=== PATIENT | male | born 1980 | race Caucasian/White ===

== ENCOUNTER 2022-09-04 12:02 | Outpatient (CLI) | payer BC, SELFPAY ==
[2022-09-04 10:40] LABS: Alanine Aminotransferase* 74 U/L (4-50); Cholesterol* 158 mg/dL (90-199)
[2022-09-04 10:41] LABS: HDL Cholesterol* 38 mg/dL (>=40); LDL Cholesterol Calculated 86 mg/dL (<100); Triglycerides* 169 mg/dL (40-149)
[2022-09-09 09:10] LABS: Chloride* 103 mmol/L (96-114); Potassium* 4.2 mmol/L (3.6-5.1); Sodium* 140 mmol/L (135-149)
[2022-09-09 09:12] LABS: Creatinine* 0.7 mg/dL (0.5-1.5); Estimated Glomerular Filt Rate 118 ml/min
[2022-09-09 09:13] LABS: Blood Urea Nitrogen* 10 mg/dL (5-24); Calcium* 8.2 mg/dL (8.4-10.6); Carbon Dioxide* 26 mmol/L (20-32); Glucose* 96 mg/dL (60-115)
== END 2022-09-04 12:03 | disposition home or self-care (01) ==
PROVIDERS: PCP Family Medicine; Visit Provider Family Medicine
DX: Z00.00 Encounter for general adult medical examination without abnormal findings (principal); E78.00 Pure hypercholesterolemia, unspecified; I10 Essential (primary) hypertension
CPT/HCPCS: 80048; 80061; 84460

== ENCOUNTER 2022-11-07 14:55 | Emergency (ER) | payer BC, SELFPAY ==
[2022-11-07 15:25] VITALS: BP 151/85; PULSE 78; RESP 16; TEMP 36.1; O2SAT 96; BMI 36.5
--- NOTE | 2022-11-07 15:41 | ED.GENADULT ---
HPI - General Adult General Time Seen by Provider: 15:41 Date Seen: 11/07/22 Chief complaint: Lower Extremity Swelling Stated complaint: Left ankle injury Time Seen by Provider: 11/07/22 15:22 Source: patient and RN notes reviewed Mode of arrival: ambulatory Limitations: no limitations History of Present Illness HPI narrative: Patient is a 42-year-old male coming in with left ankle pain and swelling and inability to bear weight on it. Slipped yesterday injuring the ankle. He has been trying to use crutches from someone else but they are too short. He cannot bear weight without severe pain. There is no numbness tingling in this foot. He has tried some Tylenol ibuprofen, ice, elevation. It is significantly swollen today, felt that he should probably have x-rays. Nothing else was injured in the fall, did not hit his head, nothing else is hurting at this time. Related Data Previous Rx's Medication Instructions Recorded rosuvastatin 10 mg tablet 10 mg PO .hs #90 tabs 09/08/22 triamterene 37.5 1 tab PO DAILY #90 tabs 09/09/22 mg-hydrochlorothiazide 25 mg tablet triamcinolone acetonide 0.1 % 1 applic topical BID #80 grams 10/02/22 topical cream Allergies Allergy/AdvReac Type Severity Reaction Status Date / Time No Known Allergies Allergy Unknown Verified 11/07/22 15:24 Review of Systems Narrative: As per HPI PFS PFS Medical History (Updated 11/07/22 @ 17:17 by Mireille Cano MD) Dermatitis Encounter for pre-operative examination Encounter for routine history and physical examination of adult Family History (Updated 09/02/22 @ 16:08 by Africa Sena) Other Diabetes Social History Smoking Status: Current every day smoker What tobacco products do you use: cigarettes Do you use any of these nicotine containing products: None Second hand tobacco smoke exposure: Yes How often do you have a drink containing alcohol: 2-3 times a week How many standard drinks containing alcohol do you have on a typical day: 5 or 6 How often do you have six or more drinks on one occasion: Monthly AUDIT-C Alcohol total score: 7 Non-prescribed substance use: denies use service: No Exam Const: Vital Signs, click to edit/add: Vital Signs - 24 hr 11/07/22 15:25 Temperature 96.9 F L Pulse Rate [Pulse Oximeter] 78 Respiratory Rate 16 Blood Pressure [Ri ght Upper Arm] 151/85 H Pulse Oximetry 96 Oxygen Delivery Me thod Room Air Documenting provider has reviewed patient's vital signs: yes Common normals: no apparent distress, average body habitus, oriented x3, no limitations, healthy appearing, alert and well nourished Other: Patient is seen and examined 3, lying on the bed. His left ankle is significantly swollen. There is pain over both malleoli. Anterior ankle mortise is significantly obscured by swelling. He has got good pulses of the foot normal light touch sensation and coloration of his toes. Some chronic hemosiderin staining noted behind the medial malleolus. Did not mobilize his ankle, there is such significant swelling that I am concerned there is an underlying fracture here. No open wound noted, no significant ecchymosis at this time. Neuro: Common normals: oriented x3 Sensorium/orientation: alert Course Course Hospital Course: We will obtain three-view left ankle x-ray. Patient is in agreement. Consultations Consultation #1: Spoke with Anya GRAY on-call for Orthopedics. We reviewed the films, she agreed that we should get full visualization of the full tibia and fibula which I will subsequently order. We discussed immobilization, she would like the posterior splint with the you tongue support which I a subsequently applied after talking to her. Time: 16:40 Vital Signs Vital signs: Initial Vital Signs Temperature 96.9 F L 11/07/22 15:25 Temperature Source Temporal Artery Scan 11/07/22 15:25 Pulse Rate 78 11/07/22 15:25 Pulse Rhythm 11/07/22 15:25 Respiratory Rate 16 11/07/22 15:25 Blood Pressure 151/85 H 11/07/22 15:25 Blood Pressure Mean 107 11/07/22 15:25 Blood Pressure Position Supine 11/07/22 15:25 Pulse Oximetry 96 11/07/22 15:25 Oxygen Delivery Method 11/07/22 15:25 Vital Signs Temperature 96.9 F L 11/07/22 15:25 Pulse Rate 78 11/07/22 15:25 Respiratory Rate 16 11/07/22 15:25 Blood Pressure 151/85 H 11/07/22 15:25 Pulse Oximetry 96 11/07/22 15:25 Oxygen Delivery Method 11/07/22 15:25 Temperature 96.9 F L 11/07/22 15:25 Pulse Rate 78 11/07/22 15:25 Respiratory Rate 16 11/07/22 15:25 Blood Pressure 151/85 H 11/07/22 15:25 Pulse Oximetry 96 11/07/22 15:25 Oxygen Delivery Method 11/07/22 15:25 Medical Decision Making Imaging Data X-ray left ankle: Attestation: I have reviewed the pertinent imaging results. My impression: Fibula fracture, may extend beyond the limits of the film. Await Radiology over-read. Radiologist's impression: Patient: [facility] Facility:?[facility] Patient ID:?[id number] Site Patient ID:?[id number]. Site :?[id number] Study:?XRay Extremity Left ANKLE 3 VIEWS-11/07/2022 4:14:50 PM Ordering Physician:?Jerome Kendrick Final Report: INDICATION: Fall, pain, swelling. TECHNIQUE: Left ankle 3 views. COMPARISON: None. FINDINGS: The inferior aspect of the ankle is not fully imaged on lateral view. There is an acute mildly displaced spiral fracture of the distal fibular diaphysis. No dislocation. Ankle mortise appears symmetric. Soft tissue swelling about the ankle greatest laterally. IMPRESSION: Acute mildly displaced spiral fracture of the distal fibula with associated soft tissue swelling. Dictated by Kerline Hill MD @ 11/07/2022 4:41:51 PM (Electronic Signature) X-ray left tib-fib: Attestation: I have reviewed the pertinent imaging results. My impression: Fibula fracture seen. Await radiology read. Radiologist's impression: Patient: [facility] Facility:?[facility] Patient ID:?[id number] Site Patient ID:?[id number]. Site :?[id number] Study:?XRay Extremity Left TIB FIB 2 VIEW-11/07/2022 4:59:44 PM Ordering Physician:?Jerome Kendrick Final Report: Indication: Ankle injury. Technique: Left tibia and fibula 4 views. Comparison: None. Findings/Impression: Bones: Acute nondisplaced spiral fracture present in the distal fibula. Remainder of the tibia and fibula are unremarkable. Joint spaces: Unremarkable. Soft tissues: Unremarkable. Dictated by Joss Spann MD @ 11/07/2022 5:37:55 PM (Electronic Signature) Critical Care Time Critical Care Time Critical Care Time: No Discharge Plan Discharge Clinical Impression: Fibula fracture Patient Disposition: Home, Self-Care Condition: Stable Instructions: Leg Fracture (ED) Additional Instructions: Need to leave splint on, keep dry. Use crutches for nonweightbearing on this side. Ice and elevate this extremity as much as able to to help minimize the swelling. Tylenol 1000 mg 3 times a day baseline for pain. Can supplement with ibuprofen per bottle directions as needed for further pain management. Have written for a small supply of oxycodone to help with sleep or if you have severe pain. You need to contact the orthopedic clinic, call [phone] early next week to get scheduled for follow-up appointment. This will require surgery and they will guide you further on recommendations. If you use the oxycodone, this is narcotic and can be constipating. May need to use MiraLax and or senna to prevent narcotic associated constipation. Activity Level: Use Crutches Prescriptions: No Action rosuvastatin 10 mg tablet 10 mg PO .hs Qty: 90 3RF triamterene-hydrochlorothiazid 37.5-25 mg tablet 1 tab PO DAILY Qty: 90 3RF triamcinolone acetonide 0.1 % cream 1 applic topical BID Qty: 80 1RF Follow Up/Referrals: Dick Mulligan MD [Primary Care Provider] - Stand Alone Forms: [facility] Info Instructions Procedures Orthopedic Splinting/Casting Injury #1: Side: left Lower Extremity Injury Location: lower leg Lower extremity immobilizer: short leg (Short-leg posterior splint applied with Ortho Glass, U tong support as well) Applied by clinician: MD/DO Other Orthopedic Equipment: crutches Conclusion: patient tolerated procedure
--- NOTE | 2022-11-07 15:43 | CRLHL7_ITS ---
For Patients: As a result of the Cures Act, medical imaging exams and procedure reports are released immediately into your electronic medical record. You may view this report before your referring provider. If you have questions, please contact your health care provider. INDICATION: Fall, pain, swelling. TECHNIQUE: Left ankle 3 views. COMPARISON: None. FINDINGS: The inferior aspect of the ankle is not fully imaged on lateral view. There is an acute mildly displaced spiral fracture of the distal fibular diaphysis. No dislocation. Ankle mortise appears symmetric. Soft tissue swelling about the ankle greatest laterally. IMPRESSION: Acute mildly displaced spiral fracture of the distal fibula with associated soft tissue swelling. Dictated by Kerline Hill MD @ 11/07/2022 4:41:51 PM (Electronically Signed)
--- NOTE | 2022-11-07 16:38 | CRLHL7_ITS ---
For Patients: As a result of the Century Cures Act, medical imaging exams and procedure reports are released immediately into your electronic medical record. You may view this report before your referring provider. If you have questions, please contact your health care provider. Indication: Ankle injury. Technique: Left tibia and fibula 4 views. Comparison: None. Findings/Impression: Bones: Acute nondisplaced spiral fracture present in the distal fibula. Remainder of the tibia and fibula are unremarkable. Joint spaces: Unremarkable. Soft tissues: Unremarkable. Dictated by Joss Spann MD @ 11/07/2022 5:37:55 PM (Electronically Signed)
[2022-11-07] MEDS: ACETAMINOPHEN 500 MG TABLET 1000 MG PO (17:41)
[2022-11-07] MEDS: OXYCODONE 5 MG TABLET PO (17:41)
--- NOTE | 2022-11-07 17:47 | ED.NURSE ---
pt given oxycodone and acetaminophen for 7/10 L leg pain. given instymeds for oxycodone. dc teaching complete.
== END 2022-11-07 17:53 | disposition home or self-care (01) ==
PROVIDERS: Emergency Provider Family Medicine; PCP Family Medicine
DX: S82.832A Other fracture of upper and lower end of left fibula, initial encounter for closed fracture (principal); W01.0XXA Fall on same level from slipping, tripping and stumbling without subsequent striking against object, initial encounter
CPT/HCPCS: 29515; 73590; 73610; 99283; A9270

== ENCOUNTER 2022-11-12 06:45 | Day surgery (SDC) | payer BC, SELFPAY ==
[2022-11-12] VITALS (11 sets, daily range): BP systolic 115–149; BP diastolic 66–100; PULSE 61–68; RESP 14–17; TEMP 36.1–36.6; O2SAT 92–97; BMI 39.3
[2022-11-12] MEDS: CEFAZOLIN 2 GM INJ IVP (06:56)
[2022-11-12] MEDS: SODIUM CHLORIDE 0.9 % (FLUSH) 10 ML SYRINGE IVF (07:00)
[2022-11-12] MEDS: LACTATED RINGERS 1000 ML 1,000 ML 100 ML IV (07:00)
[2022-11-12] MEDS: MIDAZOLAM HCL 1 MG/ML inj IVP (07:30)
[2022-11-12] MEDS: fentaNYL 100 MCG/2 ML inj IVP (07:30)
--- NOTE | 2022-11-12 08:00 | CRLHL7_ITS ---
For Patients: As a result of the Cures Act, medical imaging exams and procedure reports are released immediately into your electronic medical record. You may view this report before your referring provider. If you have questions, please contact your health care provider. Indication: Left ankle ORIF Technique: Five fluoroscopic images of the left ankle submitted. Fluoroscopic time 1 minute 51.5 seconds. IMPRESSION: Fluoroscopic guidance for ORIF of distal fibular fracture and syndesmotic fixation. Dictated by Julio Cesar Peterson MD @ 11/12/2022 11:41:39 AM (Electronically Signed)
--- NOTE | 2022-11-12 08:31 | W.PM.NB ---
Nerve Block Nerve Block Time Seen by Provider: 07:37 Date Seen: 11/12/22 Type of block requested by surgeon for post-operative analgesia: popliteal Side: left Time out performed: Yes Verification of patient name: Yes Verification of date of : Yes Site marking: site marked Name of person performing procedure: Dustin Continuous monitoring Was continuous monitoring of O2 sat, B/P, cardiac rehabilitation specialist, recorded every 15 minutes?: Yes Procedure Checklist: sterile prep, needles and gloves Ultrasound guided. Images saved: Yes Medications given in 5ml increments after negative aspiration: Ropivicaine %: 0.5 mL: 20 Needle gauge: 22 Patient tolerated procedure well: Yes Additional comments: Needle noted adjacent to nerve Block Charges Block Charge (with Pro Fee): Sciatic Nerve Use of Ultrasound Machine for Block: Yes- US Guidance/pain block
--- NOTE | 2022-11-12 08:33 | W.PM.NB ---
Nerve Block Nerve Block Time Seen by Provider: 07:37 Date Seen: 11/12/22 Type of block requested by surgeon for post-operative analgesia: adductor canal Side: left Time out performed: Yes Verification of patient name: Yes Verification of date of : Yes Site marking: site marked Name of person performing procedure: Dustin Continuous monitoring Was continuous monitoring of O2 sat, B/P, gambling monitor, recorded every 15 minutes?: Yes Procedure Checklist: sterile prep, needles and gloves Ultrasound guided. Images saved: Yes Medications given in 5ml increments after negative aspiration: Ropivicaine %: 0.5 mL: 20 Needle gauge: 20 Patient tolerated procedure well: Yes Additional comments: Needle noted adjacent to nerve Block Charges Block Charge (with Pro Fee): Femoral Nerve Use of Ultrasound Machine for Block: Yes- US Guidance/pain block
--- NOTE | 2022-11-12 09:50 | P.ORPRC_ITS ---
Procedure Note Date of procedure: 11/12/22 Procedure: PREOPERATIVE DIAGNOSIS: Left ankle Rubio C fracture POSTOPERATIVE DIAGNOSIS: Left ankle Rubio C fracture NAME OF OPERATION: ORIF SURGEON: Bao Parker MD SEASONAL PACKAGE HANDLER: Almaz Jay PA-C ANESTHESIA: Spinal plus popliteal block ESTIMATED BLOOD LOSS: 5 mL COMPLICATIONS: None SPECIMENS: None DRAINS: None PREOPERATIVE ANTIBIOTICS: Ancef 3 g INDICATIONS: The patient is a 42-year-old who sustained a left ankle fracture. ORIF was recommended. The risks, benefits and expected outcomes were discussed in detail. These included but were not limited to: Infection, bleeding, injury to blood vessel or nerve, venous thromboembolism. All questions were answered to their satisfaction. Use of an health information assistant was necessary throughout the case for patient positioning and safety, soft tissue retraction and closure. PROCEDURE: A popliteal block was placed by anesthesia. Spinal anesthesia was administered. The lower extremity was prepped and draped in the usual sterile fashion. A lobster claw reduction clamp was placed percutaneously across the fracture site. The guide pin was placed in the center of the distal fragment of the fibula, percutaneously. Its placement was confirmed with the image intensifier in multiple views. A stab incision was made around the guide pin. The opening Reamer was used. The guide pin was removed. The 3.2 mm and 3.8 mm reamer were used in the proximal fragment. We placed the Arthrex 4.0 mm x 180 mm intramedullary nail. This cause loss of length at the fracture site. Therefore, we placed 2 lateral to medial screws in the distal fragment and then pulled the fibula out to length, using the nail to reduce it. We placed a K-wire across the fibula, into the tibia to hold this out to length. We then backed the 2 screws up and the talons were deployed. We readvanced the 2 lateral to medial screws and then placed an anterior to posterior screw, through the nail. We then placed the syndesmotic reduction clamps. We placed 2 tight ropes across the syndesmosis. We removed the fibula lock head waiter/waitress and tensioned the tight ropes. This provides an anatomic reduction of the fibula with excellent fixation. Medial mortise and syndesmotic relationships are anatomic. The wounds were irrigated with normal saline. The health information assistant closed the skin with a 4-0 Monocryl in a subcuticular fashion. Glue was used to seal the skin. The health information assistant placed a dry dressing and short leg Oniel Gilbert splint. Sponge and needle counts were correct x 2. The patient tolerated the procedure well. There were no apparent complications. They were carefully transferred to the hospital bed and taken to the postanesthesia care unit in satisfactory condition. PLAN: The patient will be discharged to home. They will remain strict nonweightbearing on the lower extremity. They will continue to work on ice and elevation. They will follow up in the office in 2 weeks for a wound check and three views of the ankle out of the splint, prior to being seen, in preparation for a short-leg nonweightbearing cast. The plan is to be nonweightbearing in a cast for a total 6 weeks, then weight-bearing as tolerates in a CAM Walker for another 6 weeks to allow the syndesmosis to fully heal.
--- NOTE | 2022-11-12 10:13 | W.ANESCHARGE ---
Anesthesia Charges Start Date/Time Anesthesia Start Date: 11/12/22 Anesthesia Start Time: 08:05 Stop Date/Time Anesthesia Stop Date: 11/12/22 Anesthesia Stop Time: 10:12 Summary Emergency: No
--- NOTE | 2022-11-12 12:02 | W.ANESCHARGE ---
Anesthesia Charges Start Date/Time Anesthesia Start Date: 11/12/22 Anesthesia Start Time: 08:05 Stop Date/Time Anesthesia Stop Date: 11/12/22 Anesthesia Stop Time: 10:12 Summary Emergency: No
--- NOTE | 2022-11-12 12:16 | SUR.OPER ---
PATIENT QUESTIONS ANSWERED SATISFACTORILY PREOPERATIVELY.? PATIENT BROUGHT TO OR #2 PER CART AFTER ADMINISTRATION OF A BLOCK.? Patient positioned supine on OR #2 bed.? The perioperative?team supported arms bilaterally on arm boards.? Final approval of positioning by surgeon.?
== END 2022-11-12 11:20 | disposition home or self-care (01) ==
PROVIDERS: PCP Family Medicine; Visit Provider Orthopaedic Surgery
PROC: (CPT 27792; principal; 2022-11-12 08:00)
DX: S82.892A Other fracture of left lower leg, initial encounter for closed fracture (principal)
CPT/HCPCS: 27792; 01462; 01480; 64445; 64447; 73600; 73610; 76000; 76942; A4580; C1713; J0690; J1100; J2250; J2370; J2400; J2405; J2704; J2795; J3010; J7120

== ENCOUNTER 2022-11-28 10:54 | Day surgery (SDC) | payer BC, SELFPAY ==
[2022-11-28] VITALS (11 sets, daily range): BP systolic 120–137; BP diastolic 70–90; PULSE 54–78; RESP 12–16; TEMP 36.6–36.7; O2SAT 96–98; BMI 39.3
--- NOTE | 2022-11-28 10:49 | SUR.PREOP ---
HOME COVID TEST NEGATIVE.
[2022-11-28] MEDS: LACTATED RINGERS 1000 ML 1,000 ML 100 ML IV ×2 (11:00→13:00)
[2022-11-28] MEDS: SODIUM CHLORIDE 0.9 % (FLUSH) 10 ML SYRINGE IVF (11:00)
--- NOTE | 2022-11-28 12:00 | CRLHL7_ITS ---
For Patients: As a result of the Cures Act, medical imaging exams and procedure reports are released immediately into your electronic medical record. You may view this report before your referring provider. If you have questions, please contact your health care provider. Indication: Left Ankle Revision, Syndesmotic Fixation Technique: Three fluoroscopic images of the left ankle. Fluoroscopic time 29.5 seconds. IMPRESSION: Fluoroscopic guidance for fixation across the syndesmosis. Dictated by Julio Cesar Peterson MD @ 11/28/2022 2:26:06 PM (Electronically Signed)
[2022-11-28] MEDS: fentaNYL 100 MCG/2 ML inj IVP (12:15)
[2022-11-28] MEDS: MIDAZOLAM HCL 1 MG/ML inj IVP (12:15)
[2022-11-28] MEDS: CEFAZOLIN 3 GM in 0.9 % SODIUM CHLORIDE Mini-bag 100 ML IVPB (12:20)
--- NOTE | 2022-11-28 13:31 | W.ANESCHARGE ---
Anesthesia Charges Start Date/Time Anesthesia Start Date: 11/28/22 Anesthesia Start Time: 12:16 Stop Date/Time Anesthesia Stop Date: 11/28/22 Anesthesia Stop Time: 14:20 Summary Emergency: No
--- NOTE | 2022-11-28 14:05 | P.ORPRC_ITS ---
Procedure Note Date of procedure: 11/28/22 Procedure: PREOPERATIVE DIAGNOSIS: Left ankle Rubio C fracture with loss of syndesmotic reduction POSTOPERATIVE DIAGNOSIS: Left ankle Rubio C fracture with loss of syndesmotic reduction NAME OF OPERATION: Revision syndesmotic fixation SURGEON: Bao Parker MD RESIDENTIAL GREEN BUILDING DESIGNER: Almaz Jay PA-C ANESTHESIA: Spinal ESTIMATED BLOOD LOSS: 5 mL COMPLICATIONS: None SPECIMENS: None DRAINS: None PREOPERATIVE ANTIBIOTICS: Ancef 3 g INDICATIONS: The patient is a 42-year-old who sustained a left ankle fracture. He underwent ORIF 2 weeks ago. On follow-up this week, there was shortening of the fibula, noted on his x-ray. This was felt to be unacceptable. Therefore, revision fixation was recommended. The risks, benefits and expected outcomes were discussed in detail. These included but were not limited to: Infection, bleeding, injury to blood vessel or nerve, venous thromboembolism. All questions were answered to their satisfaction. Use of an human resource assistant was necessary throughout the case for patient positioning and safety, soft tissue retraction and closure. PROCEDURE: The patient was placed supine on the operating room table. Spinal anesthesia was administered. The lower extremity was prepped and draped in the usual sterile fashion. A percutaneous incision was placed over the anterior and posterior aspect of the distal fragment. A Rubio reduction clamp was placed and longitudinal traction was placed. This nicely regains our length. The longitudinal incision over the lateral aspect of the fibula was reopened and extended proximally. The suture securing the lateral buttons on the tight ropes was divided with the scalpel. The lateral buttons were removed. The suture was used to shipping coordinator the drill hole in the fibula. A drill bit was placed across the fibula. We then placed longitudinal traction on the distal fragment and the drill bit was advanced into the tibial drill hole. This helps maintain the length. We then made a longitudinal incision over the medial aspect of the ankle subcutaneous dissection sharply taken to the medial tight rope buttons. These were exposed and the suture securing them was divided with the scalpel. The medial buttons were removed as was the suture within the bone. The syndesmotic reduction clamp was placed, while holding longitudinal traction on the distal fragment of the fibula with the Rubio reduction clamp. A guide pin was placed in the more proximal drill hole, leaving the drill bit in the distal drill hole. We placed a 4.0 mm x 65 mm titanium cannulated screw across the syndesmosis. With minimal effort we were able to advance this across the fibula, through the nail and across the tibia. This had excellent purchase. We then exchanged the drill bit in the distal hole for a guide pin and placed a 4.0 mm x 70 mm titanium cannulated screw. Again, this had excellent purchase. We then removed syndesmotic reduction clamp. The image intensifier was used to obtain an AP, mortise and lateral view of the ankle. The fracture remains out to length, judged by the most proximal of the distal interlocking screws being at the level of the joint line and the lateral cortex of butterfly fragment of the fibula at the fracture site is anatomically aligned. Wounds were irrigated with normal saline. They were infiltrated with 0.25% Marcaine, without epinephrine. There were closed with 3-0 Vicryl deep, 3-0 nylon in the skin. A dry dressing and short leg Oniel Gilbert splint were applied. These steps were all completed by the human resource assistant. The patient tolerated the procedure well. There were no apparent complications. They were carefully transferred to the hospital bed and taken to the postanesthesia care unit in satisfactory condition. PLAN: The patient will be discharged to home. They will remain strict nonweightbearing on the lower extremity for the next 8 weeks. They will continue to work on ice and elevation. They will follow up in the office in 2 weeks for a wound check and three views of the ankle out of the splint, prior to being seen, in preparation for a short-leg, nonweightbearing cast. Eight weeks from now, we will plan to put him in a Cam walker, partial weight-bearing for another 4 weeks. At 12 weeks postoperatively we will discuss screw removal.
--- NOTE | 2022-11-28 14:22 | W.ANESCHARGE ---
Anesthesia Charges Start Date/Time Anesthesia Start Date: 11/28/22 Anesthesia Start Time: 12:16 Stop Date/Time Anesthesia Stop Date: 11/28/22 Anesthesia Stop Time: 14:20 Summary Emergency: No
--- NOTE | 2022-11-28 14:44 | W.PM.NB ---
Nerve Block Nerve Block Time Seen by Provider: 14:42 Date Seen: 11/28/22 Type of block requested by surgeon for post-operative analgesia: popliteal Side: left Time out performed: Yes Verification of patient name: Yes Verification of date of : Yes Site marking: site marked Name of person performing procedure: Dustin Continuous monitoring Was continuous monitoring of O2 sat, B/P, monitoring manager, recorded every 15 minutes?: Yes Procedure Checklist: sterile prep, needles and gloves Ultrasound guided. Images saved: Yes Medications given in 5ml increments after negative aspiration: Ropivicaine %: 0.5 mL: 20 Needle gauge: 22 Patient tolerated procedure well: Yes Additional comments: Needle noted adjacent to nerve Block Charges Block Charge (with Pro Fee): Sciatic Nerve Use of Ultrasound Machine for Block: Yes- US Guidance/pain block
== END 2022-11-28 16:00 | disposition home or self-care (01) ==
PROVIDERS: PCP Family Medicine; Visit Provider Orthopaedic Surgery
PROC: (CPT 27829; principal; 2022-11-28 12:00)
DX: S93.432A Sprain of tibiofibular ligament of left ankle, initial encounter (principal)
CPT/HCPCS: 27829; 01480; 64445; 73610; 76000; 76942; C1713; J0690; J2250; J2400; J2405; J2704; J3010; J3490; J7120

== ENCOUNTER 2023-03-17 12:09 | Outpatient (CLI) | payer BC, SELFPAY | END 2023-03-17 12:10 | disposition home or self-care (01) | LOC: LKVREF 12:10 | PROVIDERS: PCP Family Medicine; Visit Provider Emergency Medicine | DX: Z01.818 Encounter for other preprocedural examination (principal) | CPT/HCPCS: 80048 ==

== ENCOUNTER 2023-03-19 06:00 | Day surgery (SDC) | payer BC, SELFPAY ==
[2023-03-19] MEDS: SODIUM CHLORIDE 0.9 % (FLUSH) 10 ML SYRINGE IVF (06:30)
[2023-03-19] MEDS: LACTATED RINGERS 1000 ML 1,000 ML 100 ML IV (06:30)
[2023-03-19 06:33] VITALS: BMI 38.3
[2023-03-19 06:40] VITALS: BP 118/80; PULSE 70; RESP 16; TEMP 36.4; O2SAT 96
--- NOTE | 2023-03-19 06:53 | W.ANESCHARGE ---
Anesthesia Charges Start Date/Time Anesthesia Start Date: 03/19/23 Anesthesia Start Time: 07:13 Stop Date/Time Anesthesia Stop Date: 03/19/23 Anesthesia Stop Time: 07:59
--- NOTE | 2023-03-19 07:04 | CRLHL7_ITS ---
For Patients: As a result of the Cures Act, medical imaging exams and procedure reports are released immediately into your electronic medical record. You may view this report before your referring provider. If you have questions, please contact your health care provider. Indication: Left ankle syndesmotic screw removal x2 Technique: One fluoroscopic image of the left ankle. Fluoroscopic time 5.3 seconds. IMPRESSION: Fluoroscopic guidance for syndesmotic screw removal. Dictated by Julio Cesar Peterson MD @ 03/19/2023 11:29:44 AM (Electronically Signed)
[2023-03-19] MEDS: CEFAZOLIN 2 GM INJ IVP (07:23)
[2023-03-19] MEDS: BUPIVACAINE 0.5 % 10 ML VIAL INJECTION (07:34)
--- NOTE | 2023-03-19 07:48 | P.ORPRC_ITS ---
Procedure Note Date of procedure: 03/19/23 Procedure: PREOPERATIVE DIAGNOSIS: Left ankle Rubio C fracture with retained syndesmotic screws POSTOPERATIVE DIAGNOSIS: Left ankle Rubio C fracture with retained syndesmotic screws NAME OF OPERATION: Hardware removal deep SURGEON: Bao Parker MD LIE DETECTOR OPERATOR: Almaz Jay PA-C ANESTHESIA: Local plus monitored anesthesia care ESTIMATED BLOOD LOSS: 0 mL COMPLICATIONS: None SPECIMENS: None DRAINS: None PREOPERATIVE ANTIBIOTICS: Ancef 3 g INDICATIONS: The patient is a 43-year-old who sustained a left ankle fracture. ORIF was completed previously. He presents today for elective syndesmotic screw removal.. The risks, benefits and expected outcomes were discussed in detail. These included but were not limited to: Infection, bleeding, injury to blood vessel or nerve, venous thromboembolism. All questions were answered to their satisfac tion. Use of an assistant press operator offset was necessary throughout the case for patient positioning and safety, soft tissue retraction and closure. PROCEDURE: The patient is placed supine on the operating room table. IV sedation was administered by anesthesia. The lower extremity was prepped and draped in the usual sterile fashion. The image intensifier was brought in for a mortise view of the ankle. Location of the screws was estimated. Marcaine and lidocaine was infiltrated in our previously placed incision for soft tissue anesthesia. The 15 blade was utilized to open the incision. Subcutaneous dissection was bluntly taken to the screw heads which were fully exposed. Each screw was removed intact. The image intensifier was used to confirm the screws had been removed. The wound was irrigated with normal saline. It was closed with a 3-0 Vicryl and 4-0 Monocryl, by the assistant press operator offset. Glue was used to seal the skin. A soft dressing was applied. Sponge and needle counts were correct x 2. The patient tolerated the procedure well. There were no apparent complications. They were carefully transferred to the hospital bed and taken to the postanesthesia care unit in satisfactory condition. PLAN: The patient will be discharged to home. They may weightbear as tolerates. Ice, Tylenol and ibuprofen can be used as needed for pain. They will follow up in the office in 1-2 weeks for a wound check and three views of the ankle, prior to being seen.
[2023-03-19] MEDS: lidocaine HCL 2 % MULTIDOSE 20 ML VIAL INJECTION (07:54)
--- NOTE | 2023-03-19 08:01 | W.ANESCHARGE ---
Anesthesia Charges Start Date/Time Anesthesia Start Date: 03/19/23 Anesthesia Start Time: 07:13 Stop Date/Time Anesthesia Stop Date: 03/19/23 Anesthesia Stop Time: 07:59
[2023-03-19 08:03] VITALS: BP 108/95; PULSE 64; RESP 18; TEMP 36.4; O2SAT 98
[2023-03-19] MEDS: OxyCODONE/APAP 5-325 TABLET 1 TAB PO (08:11)
[2023-03-19 08:15] VITALS: BP 114/71; PULSE 55; RESP 18; O2SAT 96
[2023-03-19 08:30] VITALS: BP 100/72; PULSE 55; RESP 18; O2SAT 95
[2023-03-19 08:45] VITALS: BP 115/67; PULSE 58; RESP 18; O2SAT 97
== END 2023-03-19 08:55 | disposition home or self-care (01) ==
PROVIDERS: PCP Family Medicine; Visit Provider Orthopaedic Surgery
PROC: (CPT 20680; principal; 2023-03-19 07:15)
DX: Z47.2 Encounter for removal of internal fixation device (principal); S82.892D Other fracture of left lower leg, subsequent encounter for closed fracture with routine healing
CPT/HCPCS: 20680; 01462; 01480; 73600; 76000; A9270; J0690; J1100; J1885; J2405; J2704; J3010; J7120; S0020

== ENCOUNTER 2023-03-26 16:30 | Outpatient (RCR) | payer BC, SELFPAY | END 2023-07-24 23:59 | disposition home or self-care (01) | PROVIDERS: PCP Family Medicine; Visit Provider Orthopaedic Surgery | DX: Z98.890 Other specified postprocedural states (principal); Z87.81 Personal history of (healed) traumatic fracture; Z51.89 Encounter for other specified aftercare | CPT/HCPCS: 97110; 97116; 97140; 97161; 97530 ==

== ENCOUNTER 2024-02-24 07:48 | Outpatient (CLI) | payer BC, SELFPAY | END 2024-02-24 07:49 | disposition home or self-care (01) | LOC: NFLDREF 03-15 08:28 | PROVIDERS: PCP Family Medicine; Referring Provider Family Medicine; Visit Provider Family Medicine | DX: E78.00 Pure hypercholesterolemia, unspecified (principal); I10 Essential (primary) hypertension | CPT/HCPCS: 80053; 80061 ==